=== PATIENT | male | born 1980 | race Caucasian/White ===

== ENCOUNTER 2018-10-07 20:32 | Emergency (ER) | payer OTHER, SELFPAY ==
[2018-10-07 20:49] VITALS: BP 151/86; PULSE 94; RESP 16; TEMP 36.8; O2SAT 100
--- NOTE | 2018-10-07 21:27 | ED.SKABFB ---
HPI - Skin/Abscess/Foreign Bdy General Chief complaint: Skin/Abscess/Foreign Body Stated complaint: ANAL SORES ITCHING PAIN BLOOD Time Seen by Provider: 10/07/18 21:26 Source: patient Mode of arrival: ambulatory Limitations: no limitations History of Present Illness HPI narrative: This is a 37-year-old male comes to the emergency department with several concerns. The 1st is that he has swelling over his teeth on the right upper jaw. He states been there for a long time. He just got insurance recently and is attempting to set up an appointment with dental. He states it is painful. He has not noticed any discharge. It has been going on for several weeks. He has not had any facial swelling, he has not had any fevers he is aware of. Patient states he has very poor dentition and also has fractured teeth. His 2nd problem is that he has been having rectal pain. Patient states he was engaged in anal intercourse Tuesday 6 days ago. Patient states since then he has had rectal pain which has not improved. He will have a small amount of blood with bowel movements and sometimes when he wipes or on his underwear. He states that he has been doing Sitz baths and putting topical steroids on the rectal area with no improvement. Patient states that he does have pain with bowel movements. He states that it sort of the entire rectal area not 1 particular area that is painful. He was concerned about a fissure. Preop repair. Apparently patient denies any abdominal pain. He has not noticed any pus or purulent drainage. He has not noticed any new swelling. He denies any chest pain, shortness of breath, no vomiting. Stools been slightly are hard. Related Data Previous Rx's Medication Instructions Recorded hydrocodone-acetaminophen [Mesa] 1 tab PO Q6H PRN #7 tab 10/07/18 lidocaine 1 applictn TOP BID PRN #28.35 gram 10/07/18 penicillin V potassium 500 mg PO QID #40 tab 10/07/18 Review of Systems Review of Systems All systems reviewed & are unremarkable except as noted in HPI and below Constitutional Denies body ache(s), Denies chills, Denies fever(s) and Denies headache(s) ENT Ears, Nose, Mouth, and Throat: Reports as per HPI, Reports dental pain, Denies otalgia, Denies headache(s), Denies lip swelling, Denies nasal congestion, Denies throat swelling and Denies tongue swelling Cardiovascular Denies chest pain and Denies dyspnea Respiratory Denies cough and Denies dyspnea Gastrointestinal Gastrointestinal: Denies abdominal pain, Denies melena, Reports hematochezia, Denies change in bowel habits, Reports constipation (mildly), Denies diarrhea, Denies nausea, Denies vomiting and Reports other (rectal pain) Genitourinary Reports as per HPI, Reports difficulty urinating (had before while on Adderal), Denies genital pain, Denies urinary frequency and Denies urinary urgency Neurologic Denies headache(s) Allergic/Immunologic Denies lip swelling, Denies throat swelling and Denies tongue swelling [facility] Medical History Mood disorder (Acute) Exam Narrative Exam Narrative: GEN: Thin male, alert and oriented x 3, patient appears to be in mild distress. HEENT: Atraumatic, pupils are equal round reactive to light, extraocular movements are intact, nares are clear, TMs are clear with no fluid, there is no conjunctival pallor. Throat is clear without any exudates, erythema, tonsillar enlargement or uvular deviation, patient has a swelling of the gingiva and extending towards the palate above the right upper molars extending from the back about 3 teeth forward. There does appear to be some whitish discoloration of the skin I am not able to visualize any bone but there does appear to be some mild breakdown. The area feels hard to palpation, patient has some tenderness over the teeth as well. There is no fluctuance. Patient does not have any facial swelling. HEART: Regular rate and rhythm without murmur, clicks, rubs. LUNGS:Lungs clear to auscultation, no wheezes, rales, crackles, chest moves symmetrically ABD:bowel sounds normal, soft, non-tender, no guarding, rebound, rigidity, no masses noted, no hepatosplenomegaly, rectal exam shows some erythema and irritation of the rectum externally, patient does not have any fissure noted on exam. Patient does have tenderness with digital rectal exam and I am able to palpate hemorrhoid, there is no bright red blood on palpation. No other masses are noted. No swelling or fluctuance. :No CVA tenderness MSCL: Non-tender, no muscle atrophy, muscles strength 5/5 upper and lower extremities, full range of motion, normal gait NEURO:CN 2-12 intact, sensation normal Initial Vital Signs Initial Vital Signs: Vital Signs Temperature 98.3 F 10/07/18 20:49 Pulse Rate 94 H 10/07/18 20:49 Respiratory Rate 16 10/07/18 20:49 Blood Pressure 151/86 H 10/07/18 20:49 Pulse Oximetry 100 10/07/18 20:49 Course Orders Ordered: Discontinued Medications Hydrocodone Bitart/Acetaminophen (Vicodin Prepack) 1 bottle MISC SEEINSTR ONE Stop: 10/07/18 21:57 Last Admin: 10/07/18 22:10 Dose: 1 bottle Lidocaine (Lidocaine Oint) 1 applic TOP NOW ONE Stop: 10/07/18 21:57 Last Admin: 10/07/18 22:12 Dose: 1 applic Penicillin V Potassium (Penicillin Vk 250mg Tab Prepack) 1 bottle MISC SEEINSTR ONE Stop: 10/07/18 21:57 Last Admin: 10/07/18 22:10 Dose: 1 bottle Vital Signs - 8 hr 10/07/18 20:49 10/07/18 22:18 Temperature 98.3 F 98.2 F Pulse Rate 94 H 92 H Respiratory Rate 16 18 Blood Pressure 151/86 H 142/80 H Pulse Oximetry 100 100 MDM - Skin/Abscess/Foreign Bdy MDM Narrative Medical decision making narrative: Discussed with patient with his dental changes would treat with antibiotics but I feel he needs to see a dentist for further evaluation, potentially biopsy. Concerned that he may have other changes that are not an infection and need urgent care. Patient has 2 dental options but states he just needs to take half day off work for an appointment. On rectal exam he does have some skin breakdown and irritation as well hemorrhoid on evaluation. I discussed to continue Sitz baths, he take pain medication, use Colace for stool softener as well as topical lidocaine. He continuing to have symptoms week out he needs further evaluation and may need further evaluation with endoscopy or colonoscopy depending on how he is doing. We did discuss signs and symptoms to watch out for such as fever Um pain that is spreading to his abdomen, purulent drainage or other new or concerning symptoms. He did also ask about having some issues with starting and stopping urination that he has noticed while taking his Adderall. He states he had these issues before, we discussed that he should probably talk to his psychiatrist who prescribes his medications to see about options for treatment. Discharge Plan Departure Patient Disposition: Home Clinical Impression: Anal or rectal pain, Hemorrhoid, Gingival swelling Discharge Date/Time: 10/07/18 22:18 Interventions: ED Discharge Assessment Last Done: 10/07/18 22:18 Activity Restrictions/Additional Instructions: Take antibiotics until gone. Follow up with a dentist, your symptoms may be from infection but they may biopsy that area to check for other causes. Use topical lidocaine three times daily/before bowel movements. Continue with sitz baths 2-3 times daily. Continue to use a stool softener such as Colace 100 mg 2-3 times daily to keep the stools soft. Stop this medication if you're having diarrhea. Follow up with General surgery or primary care for further evaluation and possibly anoscopy/colonoscopy if symptoms are not resolving. Take pain medications as prescribed, these medications can make you sleepy. Do not drive, perform hazards activities or make any major decisions while taking them. Prescriptions: New hydrocodone-acetaminophen [Mesa] 5-325 mg tablet 1 tab PO Q6H PRN (Reason: pain) Qty: 7 RF: 0 penicillin V potassium 500 mg tablet 500 mg PO QID Qty: 40 RF: 0 lidocaine 3 % cream 1 applictn TOP BID PRN (Reason: pain) Qty: 28.35 RF: 0 Referrals: [facility] [Provider Group] [facility] [Provider Group] [facility] [Provider Group] [facility] [Provider Group] Gerald Curran MD [Physician] -
--- NOTE | 2018-10-07 21:49 | PC.NURSE ---
standby assist for MANR on male rectal exam. Pt tolerated provider assesment ok. Reported some pain when digital exam performed.
[2018-10-07] MEDS: HYDROCODONE/ACET 5/325 PREPACK 1 BOTTLE MISC (22:10)
[2018-10-07] MEDS: PENICILLIN 250 MG TAB PREPACK 1 BOTTLE MISC (22:10)
[2018-10-07] MEDS: LIDOCAINE 5% OINT 35 GM 1 APPLIC TOP (22:12)
[2018-10-07 22:18] VITALS: BP 142/80; PULSE 92; RESP 18; TEMP 36.8; O2SAT 100
== END 2018-10-07 22:18 | disposition home or self-care (01) ==
PROVIDERS: Emergency Provider Emergency Medicine
DX: K62.89 Other specified diseases of anus and rectum (principal); K64.9 Unspecified hemorrhoids; R22.0 Localized swelling, mass and lump, head
CPT/HCPCS: 99282